=== PATIENT | male | born 1940 | race Caucasian/White ===

== ENCOUNTER 2017-09-24 23:35 | Emergency (ER) | payer MEDICARE, OTHER ==
--- NOTE | 2017-09-24 23:56 | RAD ---
PA AND LATERAL CHEST: Indication: Chest pain. Comparison: 07-08-16 FINDINGS: Lungs are clear. Cardiomediastinal silhouette is within normal limits. No acute osseous abnormality i s evident. Numerous surgical clips are seen within the right upper quadrant of the abdomen, similar t o the prior exam. IMPRESSION: No acute cardiopulmonary abnormality. POS: [facility]
[2017-09-25 00:20] LABS: #Basophils 0.1 thou/uL (0.0-0.2); #Eosinphils 0.3 thou/uL (0.0-0.7); #Lymphocytes 3.7 thou/uL (1.20-3.40); #Monocytes 0.7 thou/uL (0.11-0.59); #Neutrophils 3.9 thou/uL (1.40-6.50); %Basophils 0.9 % (0.0-1.0); %Lymphocytes 42.6 % (21.0-51.0); Hematocrit 46.2 % (42.0-52.0); Mean Platelet Volume 6.8 fL (7.4-10.4); Red Blood Cell (RBC) Count 4.81 mill/uL (4.70-6.10); White Blood Cell (WBC) Count 8.6 thou/uL (4.8-10.8)
[2017-09-25 00:39] LABS: ALT (SGPT) 59 U/L (8-55); AST (SGOT) 45 U/L (5-34); Alkaline Phosphatase 44 U/L (40-150); Anion Gap 15 mmol/L (10-20); BUN (Urea Nitrogen) 13 mg/dL (8.4-25.7); Bilirubin, Total 1.6 mg/dL (0.2-1.2); CK (CPK) 398 U/L (30-200); Calc. Creatinine Clearance 0 mL/min (70-130); Calcium 10.3 mg/dL (7.8-10.44); Carbon Dioxide 25 mmol/L (23-31); Chloride 101 mmol/L (98-107); Estimated GFR-MDRD 75; Globulin 3.9 g/dL (2.4-3.5); Protein, Total 8.1 g/dL (5.8-8.1)
[2017-09-25 00:43] LABS: Troponin I Less than 0.010 ng/mL (< 0.028)
[2017-09-25] MEDS ORDERED: Mag-Al 1200 mg/1200 mg/30 ML UDCUP ONE (01:11)
[2017-09-25] MEDS ORDERED: Lidocaine Viscous Sol 2% 15 ml UD Cup ONE (01:11)
== END 2017-09-25 02:17 | disposition home or self-care (01) ==
LOC: ERS 23:35
DX: K21.9 Gastro-esophageal reflux disease without esophagitis (principal); I10 Essential (primary) hypertension; E78.5 Hyperlipidemia, unspecified; Z79.899 Other long term (current) drug therapy
CPT/HCPCS: 36415; 71020; 80053; 82550; 82553; 84484; 85025; 93005

== ENCOUNTER 2017-09-25 10:25 | Outpatient (CLI) | payer MEDICARE, OTHER ==
--- NOTE | 2017-09-25 14:30 | ULT ---
RIGHT UPPER QUADRANT ULTRASOUND: DATE: 09/25/17. COMPARISON: None. HISTORY: Abnormal LFTs. TECHNIQUE: Multiplanar olivera scale sonographic imaging of the right upper quadrant obtained. FINDINGS: The pancreas is poorly assessed secondary to body habitus and bowel gas. The hepatic parenchyma is heterogeneous and echogenic, suggesting hepatocellular disease, such as hep atic steatosis. Gallbladder is nonvisualized. The patient provides a history of cholecystectomy. The right kidney measures 11.2 cm in craniocaudal dimension and demonstrates no stone, hydronephrosis , or mass lesion. CBD is estimated in the 5 mm range, within normal limits. IMPRESSION: 1. Status post cholecystectomy. 2. Increased echogenicity of the hepatic parenchyma suggests hepatocellular disease, such as hepatic steatosis. 3. No evidence for biliary dilatation. POS: [facility]
== END 2017-09-25 10:26 | disposition home or self-care (01) ==
LOC: ULT 10:25
PROVIDERS: ATTEND Internal Medicine
DX: R74.0 Nonspecific elevation of levels of transaminase and lactic acid dehydrogenase [LDH] (principal); Z90.49 Acquired absence of other specified parts of digestive tract
CPT/HCPCS: 76700

== ENCOUNTER 2020-10-06 15:08 | Outpatient (CLI) | payer MEDICARE, OTHER ==
--- NOTE | 2020-10-06 16:35 | RAD ---
Right hip 2 views HISTORY: Right hip pain. COMPARISON: 05/29/2007. FINDINGS: Mild joint space narrowing, osteophytosis, and subchondral sclerosis. Femoral head contour is maintained. No acute fracture or dislocation. IMPRESSION : Mild osteoarthritic changes right hip.
--- NOTE | 2020-10-06 16:36 | RAD ---
XR Lumbar Spine 2 Or 3 View: 10/06/2020 3:25 PM INDICATION: Lumbar radiculopathy COMPARISON: May 29, 2007 FINDINGS: Fracture: None. Alignment: There is worsening degenerative levoscoliosis of the lumbar spine centered at L2-3. Degenerative Change: There is severe multilevel disc degenerative disease at L1-2, L2-3, and L3-4. T here is moderate disc degenerative disease at L4-5 and L5-S1. There is a moderate facet osteoarthrosis at L4-5 and L5-S1.. Bone Mineralization:Normal Soft tissues: There are cholecystectomy clips within the right upper quadrant. IMPRESSION: Worsening moderate to severe lumbar spondylosis with degenerative levoscoliosis centered at L2-3.
== END 2020-10-06 15:09 | disposition home or self-care (01) ==
LOC: BICRAD 15:08
PROVIDERS: ATTEND Internal Medicine
DX: M25.551 Pain in right hip (principal); M47.26 Other spondylosis with radiculopathy, lumbar region; M41.86 Other forms of scoliosis, lumbar region; M16.11 Unilateral primary osteoarthritis, right hip
CPT/HCPCS: 72100

== ENCOUNTER 2021-04-15 14:23 | Outpatient (CLI) | payer MEDICARE, OTHER | END 2021-04-15 14:24 | disposition home or self-care (01) | LOC: BICRAD 14:23 | PROVIDERS: ATTEND Internal Medicine | DX: M54.41 Lumbago with sciatica, right side (principal); M51.36 Other intervertebral disc degeneration, lumbar region; M41.9 Scoliosis, unspecified | CPT/HCPCS: 72100 ==

== ENCOUNTER 2021-12-13 08:14 | Outpatient (CLI) | payer MEDICARE | END 2021-12-13 08:15 | disposition home or self-care (01) | LOC: BICULT 08:14 | PROVIDERS: ATTEND Internal Medicine | DX: E80.6 Other disorders of bilirubin metabolism (principal); R16.0 Hepatomegaly, not elsewhere classified; K76.0 Fatty (change of) liver, not elsewhere classified; Z90.49 Acquired absence of other specified parts of digestive tract | CPT/HCPCS: 76705 ==